=== PATIENT | female | born 1965 | race Caucasian/White ===

== ENCOUNTER 2017-08-08 11:30 | Emergency (ER) | payer BC, OTHER ==
[~2017-08-08] VITALS: Ht 162.6 cm; Wt 68.0 kg
--- OUTSIDE RECORDS SUMMARY | 2017-08-08 11:38 | XMS REPORT | Continuity of Care Document ---
Author Author [facility] Organization [facility] Address Unknown Phone Unavailable Allergies There is no data. Medications There is no data. Problems There is no data. Procedures There is no data. Results There is no data. Encounters ACCT No. Visit Date/Time Discharge Status Pt. Type Provider Facility Loc./Unit Complaint [id number] 09/03/2014 15:39:00 09/03/2014 23:59:59 CLS Outpatient PHILIPPE BARKER [facility] OCC
[2017-08-08] MEDS ORDERED: NS IV 1000 ML 1,000 ML IV ONE (11:51)
[2017-08-08] MEDS ORDERED: RT-ALBUTEROL/IPRATROPIUM 3 ML (DUONEB) VIAL INH ONE (12:00)
[2017-08-08] MEDS ORDERED: KETOROLAC 30 MG/ML VIAL IVP ONE (12:00)
[2017-08-08] MEDS ORDERED: ONDANSETRON 4 MG/2 ML (SDV) Z0FRAN IVP ONE (12:00)
--- NOTE | 2017-08-08 12:16 | ED General ---
General Chief Complaint: Cough/Cold/Flu Symptoms Stated Complaint: N/V/D/FEVER Nursing Triage Note: c/o cough/N-V/diarrhea/fever/chills. Onset Sunday. Nursing Sepsis Screen: Possible Sepsis Risk Source of Information: Patient Exam Limitations: No Limitations History of Present Illness Time Seen by Provider: 11:41 Initial Comments This 51 woman presents to emergency room with illness for the past 5 days including fever, chills, myalgia, vomiting, diarrhea, dry mouth, and mild cough. Temperatures at home have been up to 102.6. She is concerned she is becoming dehydrated. She sometimes wakes up gasping after lying down. She has no significant chronic health problems. Allergies and Home Medications Allergies Coded Allergies: acetaminophen (Verified Allergy, Unknown, 08/08/17) codeine (Verified Allergy, Unknown, 08/08/17) diazepam (Verified Allergy, Unknown, 08/08/17) oxycodone (Verified Allergy, Unknown, 08/08/17) propoxyphene (Verified Allergy, Unknown, 08/08/17) Home Medications Albuterol Sulfate 1 Puff Puff, 1-4 PUFF IH Q4H PRN for SHORTNESS OF BREATH, #1 1 PUFF = 90 MCG Prescribed by: ANTONIO JEWELL on 08/08/17 1312 Ondansetron 4 Mg Tab.rapdis, 4 MG SL Q4H PRN for NAUSEA/VOMITING-1ST LINE, #10 Prescribed by: ANTONIO JEWELL on 08/08/17 1312 Constitutional: see HPI EENTM: see HPI Respiratory: see HPI Cardiovascular: no symptoms reported Gastrointestinal: see HPI Genitourinary: no symptoms reported : No Musculoskeletal: see HPI Skin: no symptoms reported Psychiatric/Neurological: No Symptoms Reported Hematologic/Lymphatic: No Symptoms Reported Past [id number]-[id number] Hx Patient Social History Alcohol Use: Denies Use Recreational Drug Use: No Smoking Status: Former Smoker Former Smoker, Quit: Jul 28, 2017 Recent Foreign Travel: No Contact w/Someone Who Travel: No Recent Infectious Disease Expo: No Surgeries History of Surgeries: Yes (right shoulder, abdominal adhesions) Surgeries: Appendectomy, Hysterectomy, Tonsillectomy Respiratory History of Respiratory Disorde: No Cardiovascular History of Cardiac Disorders: No Neurological History of Neurological Disord: No Reproductive System : No Genitourinary History of Genitourinary Disor: No Gastrointestinal History of Gastrointestinal Di: No Musculoskeletal History of Musculoskeletal Dis: No Endocrine History of Endocrine Disorders: No HEENT History of HEENT Disorders: No Cancer History of Cancer: No Psychosocial History of Psychiatric Problem: No Integumentary History of Skin or Integumenta: No Blood Transfusions History of Blood Disorders: No Physical Exam Vital Signs Vital Sign - Last 12Hours 08/08/17 08/08/17 11:45 14:17 Temp 98.8 Pulse 102 Resp 16 B/P (MAP) 128/82 (97) Pulse Ox 97 O2 Delivery Room Air Capillary Refill : Less Than 3 Seconds General Appearance: No Apparent Distress, WD/WN HEENT: PERRL/EOMI, Normal ENT Inspection, Other (oropharynx somewhat dry) Neck: Normal Inspection Respiratory: No Accessory Muscle Use, No Respiratory Distress, Wheezing (with forced expiration), Other (forced expiration induces wheezing and cough) Cardiovascular: Regular Rate, Rhythm, No Edema, No Murmur Gastrointestinal: Normal Bowel Sounds, Non Tender, Soft Extremity: Normal Inspection, No Pedal Edema Neurologic/Psychiatric: Alert, Oriented x3, No Motor/Sensory Deficits, Normal Mood/Affect, policy analyst II-XII Norm as Tested Skin: Normal Color, Warm/Dry Progress/Results/Core Measures Suspected Sepsis Recent Fever Within 48 Hours: Yes Infection Criteria Present: Suspected New Infection New/Unexplained Altered Menta: No Sepsis Screen: Possible Sepsis Risk Sepsis Diagnosis: SIRS Temperature:98.8 Pulse: 102 Respiratory Rate: Laboratory Tests 08/08/17 12:15: White Blood Count 8.3 Blood Pressure 128 /82 Mean: 97 Laboratory Tests 08/08/17 12:15: Creatinine 0.74, Platelet Count 160, Total Bilirubin 0.4 Results/Orders Lab Results Laboratory Tests Test 08/08/17 12:15 Range/Units White Blood Count 8.3 4.3-11.0 10^3/uL Red Blood Count 4.90 4.35-5.85 10^6/uL Hemoglobin 13.9 11.5-16.0 G/DL Hematocrit 42 35-52 % Mean Corpuscular Volume 85 80-99 FL Mean Corpuscular Hemoglobin 28 25-34 PG Mean Corpuscular Hemoglobin Concent 33 32-36 G/DL Red Cell Distribution Width 12.6 10.0-14.5 % Platelet Count 160 130-400 10^3/uL Mean Platelet Volume 11.3 H 7.4-10.4 FL Neutrophils (%) (Auto) 76 H 42-75 % Lymphocytes (%) (Auto) 14 12-44 % Monocytes (%) (Auto) 10 0-12 % Eosinophils (%) (Auto) 0 0-10 % Basophils (%) (Auto) 0 0-10 % Neutrophils # (Auto) 6.2 1.8-7.8 X 10^3 Lymphocytes # (Auto) 1.2 1.0-4.0 X 10^3 Monocytes # (Auto) 0.8 0.0-1.0 X 10^3 Eosinophils # (Auto) 0.0 0.0-0.3 10^3/uL Basophils # (Auto) 0.0 0.0-0.1 10^3/uL Sodium Level 137 135-145 MMOL/L Potassium Level 4.0 3.6-5.0 MMOL/L Chloride Level 102 98-107 MMOL/L Carbon Dioxide Level 22 21-32 MMOL/L Anion Gap 13 5-14 MMOL/L Blood Urea Nitrogen 6 L 7-18 MG/DL Creatinine 0.74 0.60-1.30 MG/DL Estimat Glomerular Filtration Rate > 60 BUN/Creatinine Ratio 8 Glucose Level 80 70-105 MG/DL Calcium Level 8.8 8.5-10.1 MG/DL Magnesium Level 1.9 1.8-2.4 MG/DL Total Bilirubin 0.4 0.1-1.0 MG/DL Aspartate Amino Transf (AST/SGOT) 21 5-34 U/L Alanine Aminotransferase (ALT/SGPT) 17 0-55 U/L Alkaline Phosphatase 79 40-136 U/L Total Protein 6.9 6.4-8.2 GM/DL Albumin 4.1 3.2-4.5 GM/DL My Orders Orders - ANTONIO LUNA MD Albuterol/Ipra Inhalation Soln (Duoneb I (08/08/17 12:00) Cbc With Automated Diff (08/08/17 11:51) Comprehensive Metabolic Panel (08/08/17 11:51) Magnesium (08/08/17 11:51) Saline Lock/Iv-Start (08/08/17 11:51) Ns Iv 1000 Ml (Sodium Chloride 0.9%) (08/08/17 11:51) Svn Sm Volume Nebulizer Rt-Rfs (08/08/17 11:51) Ondansetron Injection (Zofran Injectio (08/08/17 12:00) Ketorolac Injection (Toradol Injection) (08/08/17 12:00) Medications Given in ED Vital Signs/I&O Capillary Refill : Less Than 3 Seconds Blood Pressure Mean: 97 Progress Note #1: Time: 12:17 Progress Note Patient was seen and examined. She is receiving Zofran, Toradol, and IV fluids. She'll also receive a DuoNeb treatment for her wheezing. We discussed testing for influenza but this will not change her treatment. She is past the Tamiflu treatment window. She declines influenza screening. Progress Note #2: Progress Note Patient had good improvement in symptoms with treatment as outlined above. DuoNeb treatment improved her breathing. She was prescribed an albuterol inhaler and Zofran. Departure Impression Impression: Primary Impression: Nausea and vomiting Qualified Codes: R11.2 - Nausea with vomiting, unspecified Additional Impression: Acute bronchitis Qualified Codes: J20.9 - Acute bronchitis, unspecified Disposition: 01 HOME, SELF-CARE Condition: Improved Departure-Patient Inst. Decision time for Depature: 13:09 Referrals: KARRIE VANEGAS MD (PCP/Family) Primary Care Physician Patient Instructions: Acute Bronchitis, Adult (DC) Add. Discharge Instructions: Drink plenty of clear liquids. Gradually advance your diet with small quantities of bland food as tolerated. You may take ibuprofen up to 600 mg every 6 hours as needed for body aches and fever. Add Tylenol (acetaminophen) up to 1000 mg every 6 hours as needed for additional relief. Use the Zofran ( ondansetron) as prescribed for nausea and vomiting. Use your inhaler as directed up to 4 puffs and a four-hour period of time for shortness of air, uncontrolled cough and wheezing. Return to the ER or contact her doctor if not improving over the next few days or if symptoms worsen. All discharge instructions reviewed with patient and/or family. Voiced understanding. Scripts Albuterol Sulfate (PROAIR HFA) 1 Puff Puff 1-4 PUFF IH Q4H Y for SHORTNESS OF BREATH, #1 PUFF 1 PUFF = 90 MCG Prov: ANTONIO LUNA MD 08/08/17 Ondansetron (Zofran Odt) 4 Mg Tab.rapdis 4 MG SL Q4H Y for NAUSEA/VOMITING-1ST LINE, #10 TAB Prov: ANTONIO LUNA MD 08/08/17 ANTONIO LUNA MD Aug 08, 2017 12:16
[2017-08-08 12:36] LABS: BASOPHILS % (AUTO) 0 % (0-10); EOSINOPHILS % (AUTO) 0 % (0-10); HEMATOCRIT 42 % (35-52); HEMOGLOBIN 13.9 G/DL (11.5-16.0); LYMPHOCYTES # (AUTO) 1.2 X 10^3 (1.0-4.0); LYMPHOCYTES % (AUTO) 14 % (12-44); MEAN CORPUSCULAR HEMOGLOBIN 28 PG (25-34); MEAN CORPUSCULAR HGB CONC 33 G/DL (32-36); MEAN CORPUSCULAR VOLUME 85 FL (80-99); MEAN PLATELET VOLUME 11.3 FL (7.4-10.4); MONOCYTES # (AUTO) 0.8 X 10^3 (0.0-1.0); MONOCYTES % (AUTO) 10 % (0-12); NEUTROPHILS # (AUTO) 6.2 X 10^3 (1.8-7.8); NEUTROPHILS % (AUTO) 76 % (42-75); PLATELET COUNT 160 10^3/uL (130-400); RED CELL DISTRIBUTION WIDTH 12.6 % (10.0-14.5); WHITE BLOOD COUNT 8.3 10^3/uL (4.3-11.0)
[2017-08-08 12:54] LABS: ALANINE AMINOTRANSFERASE 17 U/L (0-55); ALBUMIN 4.1 GM/DL (3.2-4.5); ALKALINE PHOSPHATASE 79 U/L (40-136); BILIRUBIN,TOTAL 0.4 MG/DL (0.1-1.0); BUN/CREATININE RATIO 8; CALCIUM 8.8 MG/DL (8.5-10.1); CARBON DIOXIDE 22 MMOL/L (21-32); CHLORIDE 102 MMOL/L (98-107); CREATININE SERUM 0.74 MG/DL (0.60-1.30); GFR ESTIMATED > 60; GLUCOSE 80 MG/DL (70-105); MAGNESIUM 1.9 MG/DL (1.8-2.4); SODIUM 137 MMOL/L (135-145); TOTAL PROTEIN 6.9 GM/DL (6.4-8.2)
[2017-08-08] MEDS ORDERED: ONDA4TAB8 SL (13:12)
[2017-08-08] MEDS ORDERED: RT-ALBUINH IH (13:12)
[2017-08-08 14:17] VITALS: BP 124/80
== END 2017-08-08 14:17 | disposition home or self-care (01) ==
LOC: EDUNIT# 11:30 → ER 11:34
DX: J20.9 Acute bronchitis, unspecified (principal); R11.2 Nausea with vomiting, unspecified; Z90.710 Acquired absence of both cervix and uterus; Z90.49 Acquired absence of other specified parts of digestive tract; Z87.891 Personal history of nicotine dependence
CPT/HCPCS: 36415; 80053; 83735; 85025; 94640

== ENCOUNTER 2021-11-07 12:20 | Observation (INO) | payer BC ==
[~2021-11-07] VITALS: Ht 162.5 cm; Wt 68.0 kg
[~2021-11-07 12:20] MED LIST: ONDA4TAB8 SL; RT-ALBUINH IH
--- NOTE | 2021-11-07 12:39 | ED Neurological Problem ---
General Stated Complaint: AMS Source: EMS Exam Limitations: clinical condition History of Present Illness Date Seen by Provider: Nov 07, 2021 Time Seen by Provider: 12:28 Initial Comments Patient is a 55-year-old female brought to the emergency department by EMS chief complaint of altered mental status. Patient reportedly was at work talking to friends about some dental work she had done recently. This progressed into a conversation about a friend who recently from Covid. Apparently the patient became hysterical, crying started acting confused. When EMS arrived the patient was unable to say anything other than her name. She did follow commands. Vital signs were stable. On arrival the patient is crying and not really talking or answering questions. She seems to be understanding what I am saying, nodding appropriately. She will squeeze my hands when asked but when I tried to proceed with neurologic evaluation she could not really follow commands/directions. At this point stroke alert is called and the patient will be sent to CT. In looking at the patient's medications in her purse she is currently on some Zofran, hydrocodone, antibiotics. I did ask her if she took any extra hydrocodone today she nodded no. We asked her if there was anyone we could call and she said no. As I was leaving the room the patient was speaking rather clearly to the nurse saying she was caught up in electronic monitoring devices as they were getting her undressed to go to scan. Per patient's daughter she went to the dentist on Sunday of last week. Started on nausea medicine, amoxicillin, pain medications and ibuprofen. 1438 Nurse was able to track down a co-worker who states that last known well time was 0945. Timing/Duration: 1/2 hour Associated Symptoms: confusion, other (crying/panic) Allergies and Home Medications Allergies Coded Allergies: acetaminophen (Verified Allergy, Unknown, 11/07/21) codeine (Verified Allergy, Unknown, 11/07/21) diazepam (Verified Allergy, Unknown, 11/07/21) oxycodone (Verified Allergy, Unknown, 11/07/21) propoxyphene (Verified Allergy, Unknown, 11/07/21) Patient Home Medication List Home Medication List Reviewed: Yes Albuterol Sulfate (Proair Hfa) 1 Puff Puff, 1-4 PUFF IH Q4H PRN for SHORTNESS OF BREATH Prescribed by: ANTONIO JEWELL on 08/08/171311 Ondansetron (Zofran Odt) 4 Mg Tab.rapdis, 4 MG SL Q4H PRN for NAUSEA/VOMITING- 1ST LINE Prescribed by: ANTONIO JEWELL on 08/08/171311 Review of Systems Review of Systems Constitutional: see HPI unable to obtain due to clinical condition Past Fdgylwl-Zwzkwd-Nwoemj Hx Past Medical History Surgeries: Yes (right shoulder, abdominal adhesions) Appendectomy, Hysterectomy, Tonsillectomy Respiratory: No Cardiac: No Neurological: No Genitourinary: No Gastrointestinal: No Musculoskeletal: No Endocrine: No HEENT: No Cancer: No Psychosocial: No Integumentary: No Blood Disorders: No Physical Exam Vital Signs Vital Signs - First Documented 11/07/21 12:24 Temp 36.8 Pulse 88 Resp 16 B/P (MAP) 108/76 (87) Pulse Ox 97 O2 Delivery Room Air Capillary Refill : Height, Weight, BMI Height: 5'4.00" Weight: 150lbs. oz. 68.217368vh; BMI Method:Estimated General Appearance: WD/WN, moderate distress (crying/upset) HEENT: PERRL/EOMI, other (moist mucous membranes) Neck: normal inspection Respiratory: lungs clear, normal breath sounds, no respiratory distress, no accessory muscle use Cardiovascular: regular rate, rhythm, other (2+ radial pusles bilaterally) Gastrointestinal: normal bowel sounds, soft Extremities: normal range of motion, normal inspection, no pedal edema, normal capillary refill Neurologic/Psychiatric: alert, aphasia, other (depressed affect; nods that she understands but is having a difficult time getting words out; will not "pull" for upper extremity biceps testing, does not seem to understand shoulder shrug) Crainal Nerves: normal hearing, PERRL; No abnormal eye position, No abnormal pupil position, No facial asymmetry Coordination/Gait: other (gait not tested; will not/cannot comply with other cerebellar function testing) Motor/Sensory: no motor deficit Skin: normal color, warm/dry Stroke Onset of Symptoms Date of Onset of Symptoms: Nov 07, 2021 Symptoms onset unknown: Yes (unclear time of onset) NIH Stroke Scale Assessment Select: Post CT Level of Consciousness: 0=Alert (0), LOC Commands: 0=Performs both tasks (0), Gaze: Normal (0), Visual Valdovinos: 0=No visual loss (0), Facial Movement (Facial Paresis): 0=Normal symmetrical mnt (0), Motor Function-Arms Right: 0=No drift (0), Motor Function-Arms Left: 0=No drift (0), Motor Function-Legs Right: 0=No drift (0), Motor Function-Legs Left: 0=No drift (0), Limb Ataxia: 0=Absent (0), Sensory: 0=Normal:no loss (0), Best Language: 1=Mild to moderat aphasia (1), Dysarthria: 0=Normal (0), Extinction & Inattention: 0=No abnormality (0), Total: 1 Stroke Thrombolytic Exclusion Age 18 or Over: Yes Acute intenal hemorrhage: No History of CVA: No Uncontrolled Coagulation Defec: No Intracranial Hemorrhage: No Severe Hypertension: No GI or Bleed: No Subarachnoid Hemorrhage: No Intracranial Neoplasm/Aneurysm: No Oral Anticoagulants: No Surgery or Trauma: No Puncture of Non-Compressible V: No Recent CPR: No Diabetic Hemorrhagic Retinopat: No Organ Biopsy: No Recent Obstetric Delivery: No Glucose: No Significant Hepatic Dysfunctio: No NIH Stoke Scale >22: No Bacterial Endocarditis: No Pericarditis: No Improving Symptoms: Yes Platelets: No TPA Contraindication: No IV - TPa Received IV - TPa Procedure Performed?: No Progress/Results/Core Measures Results/Orders Lab Results Laboratory Tests Test 11/07/21 12:40 11/07/21 12:41 Range/Units White Blood Count 7.4 4.3-11.0 10^3/uL Red Blood Count 5.09 3.80-5.11 10^6/uL Hemoglobin 14.2 11.5-16.0 g/dL Hematocrit 43 35-52 % Mean Corpuscular Volume 85 80-99 fL Mean Corpuscular Hemoglobin 28 25-34 pg Mean Corpuscular Hemoglobin Concent 33 32-36 g/dL Red Cell Distribution Width 12.1 10.0-14.5 % Platelet Count 234 130-400 10^3/uL Mean Platelet Volume 10.8 9.0-12.2 fL Immature Granulocyte % (Auto) 1 % Neutrophils (%) (Auto) 71 42-75 % Lymphocytes (%) (Auto) 23 12-44 % Monocytes (%) (Auto) 5 0-12 % Eosinophils (%) (Auto) 1 0-10 % Basophils (%) (Auto) 0 0-10 % Neutrophils # (Auto) 5.3 1.8-7.8 10^3/uL Lymphocytes # (Auto) 1.7 1.0-4.0 10^3/uL Monocytes # (Auto) 0.4 0.0-1.0 10^3/uL Eosinophils # (Auto) 0.0 0.0-0.3 10^3/uL Basophils # (Auto) 0.0 0.0-0.1 10^3/uL Immature Granulocyte # (Auto) 0.0 0.0-0.1 10^3/uL Prothrombin Time 12.6 12.2-14.7 SEC INR Comment 0.9 0.8-1.4 Activated Partial Thromboplast Time 30 24-35 SEC D-Dimer 0.37 0.00-0.49 UG/ML Sodium Level 138 135-145 MMOL/L Potassium Level 3.6 3.6-5.0 MMOL/L Chloride Level 105 98-107 MMOL/L Carbon Dioxide Level 19 L 21-32 MMOL/L Anion Gap 14 5-14 MMOL/L Blood Urea Nitrogen 8 7-18 MG/DL Creatinine 0.80 0.60-1.30 MG/DL Estimat Glomerular Filtration Rate 86 BUN/Creatinine Ratio 10 Glucose Level 99 70-105 MG/DL Calcium Level 9.0 8.5-10.1 MG/DL Corrected Calcium 9.2 8.5-10.1 MG/DL Total Bilirubin 0.5 0.1-1.0 MG/DL Aspartate Amino Transf (AST/SGOT) 12 5-34 U/L Alanine Aminotransferase (ALT/SGPT) 14 0-55 U/L Alkaline Phosphatase 75 40-136 U/L Troponin I < 0.028 <0.028 NG/ML Total Protein 6.3 L 6.4-8.2 GM/DL Albumin 3.8 3.2-4.5 GM/DL Salicylates Level < 5.0 L 5.0-20.0 MG/DL Acetaminophen Level < 10 L 10-30 UG/ML Serum Alcohol < 10 <10 MG/DL Glucometer 99 70-110 MG/DL My Orders Orders - ROBERTO CARLOS DOTY MD Cbc With Automated Diff (11/07/21 12:34) Protime With Inr (11/07/21 12:34) Partial Thromboplastin Time (11/07/21 12:34) Comprehensive Metabolic Panel (11/07/21 12:34) Fibrin Degradation Products (11/07/21 12:34) Troponin I [place] (11/07/21 12:34) Ua Culture If Indicated (11/07/21 12:34) Chest 1 View, Ap/Pa Only (11/07/21 12:34) Ekg Tracing (11/07/21 12:34) Nothing By Mouth (11/07/21 Lunch) Accucheck Stat ONCE (11/07/21 12:34) Ed Iv/Invasive Line Start (11/07/21 12:34) Ed Iv/Invasive Line Start (11/07/21 12:34) Vital Signs Stroke Patient Q15M (11/07/21 12:34) Ct Head Wo-R/O Stroke (11/07/21 12:34) O2 (11/07/21 12:34) Intake & Output 06,14,22 (11/07/21 12:34) Monitor-Rhythm Ecg Trace Only (11/07/21 12:34) Dysphagia Screening Tool Q10MX1 (11/07/21 12:34) Post Thrombolytic Adminstratio (11/07/21 12:34) Lipid Panel (11/08/21 06:00) Ondansetron Injection (Zofran Injectio (11/07/21 13:45) Ct Angio Head/Neck (11/07/21 13:38) Accucheck Stat ONCE (11/07/21 13:54) Ed Iv/Invasive Line Start (11/07/21 13:54) Ed Iv/Invasive Line Start (11/07/21 13:54) Vital Signs Stroke Patient Q15M (11/07/21 13:54) O2 (11/07/21 13:54) Dysphagia Screening Tool Q10MX1 (11/07/21 13:54) Post Thrombolytic Adminstratio (11/07/21 13:54) Iohexol Injection (Omnipaque 350 Mg/Ml 1 (11/07/21 14:00) Received Contrast (Hold Metformin- Contr (11/07/21 14:00) Sodium Chloride Flush (Catheter Flush Sy (11/07/21 14:00) Ns (Ivpb) (Sodium Chloride 0.9% Ivpb Bag (11/07/21 14:00) Ketorolac Injection (Toradol Injection) (11/07/21 14:00) Drug Screen Stat (Urine) (11/07/21 15:00) Salicylate (11/07/21 15:00) Acetaminophen (11/07/21 15:00) Alcohol (11/07/21 15:00) Ed Admission (Communication) (11/07/21 15:07) Medications Given in ED Vital Signs/I&O 11/07/21 12:24 Temp 36.8 Pulse 88 Resp 16 B/P (MAP) 108/76 (87) Pulse Ox 97 O2 Delivery Room Air Admisison Planning May Need Admission (Planning): 14:54 Progress Progress Note #1: Time: 14:35 Progress Note Patient is steadily improving. She is now talking in complete sentences however, still having occasional word finding difficulties. Her finger to nose was forced and deliberate but accurate. strength is normal, she follows commands up and to when I ask her to open her mouth wide and stick out her tongue - she looks at me like she doesnt understand. NIG would be zero basically (slightly limited due to patient compliance). VS are completely normal - BP is systolic 110 or so. Labs completely normal. CT head without contrast neg; CT angios neg. She is still nauseated she states, although no vomiting. Progress Note #2: Time: 15:10 Progress Note Reevaluated patient, when I walked into the room she was sitting up in the bed s hivering holding her head in her stomach complaining of nausea and frontal headache. She seems "confused" again. A little bit more "word salad". She is trying to tell me she got sick last Sunday she states "I got Sunday on last Sunday". Case was discussed with stroke neurology Dr. Andrews, who felt that appropriate work-up had been completed up until this point. He did recommend possibly a B12 level. He also recommended adding toxicology. No further work- up from a stroke standpoint was indicated. Case was discussed with Dr. Crump on for hospitalist service. Will admit observation to monitor neurologic/mental health. If no improvement, consider Natalya psych eval. Initial ECG Impression Date: Nov 07, 2021 Initial ECG Impression Time: 12:48 Initial ECG Rate: 77 Initial ECG Rhythm: Normal Sinus Initial ECG Impression: Normal Comment CT 154 QRS 104 QTc 452 No ectopy, no ST segment depression or elevation noted. Normal axis. Diagnostic Imaging Diagonstic Imaging: CT Plain Films/CT/US/NM/MRI: head Comments PT STATUS: REG ER : 1965 PHYSICIAN: ROBERTO CARLOS DOTY MD ADMIT DATE: 11/07/21/ER Draft Date of Exam:11/07/21 CT HEAD WO-R/O STROKE PROCEDURE: CT head wo r/o stroke. TECHNIQUE: Multiple contiguous axial images were obtained through the brain without the use of intravenous contrast. Auto Exposure Controls were utilized during the CT exam to meet ALARA standards for radiation dose reduction. INDICATION: Difficulty speaking, neurodeficits. COMPARISON: No prior studies are available for comparison. FINDINGS: Ventricles and sulci are within normal limits. No sulcal effacement or midline shift is identified. No acute intra-axial or extra-axial hemorrhage is seen. There is a small low density in the left thalamus consistent with age-indeterminate lacunar infarct. No other abnormalities are seen. Cisterns are patent. Visualized paranasal sinuses are clear. IMPRESSION: 1. No acute intracranial hemorrhage is detected. 2. Age-indeterminate left thalamic lacunar infarct. Dictated on workstation # [id number] Dict: 11/07/21 1310 Trans: 11/07/21 1320 [id number] Interpreted by: MICHAEL HERMOSILLO MD Electronically signed by: Diagonstic Imaging: Xray Plain Films/CT/US/NM/MRI: chest Comments [facility], [place] NAME: SORAIDA GARCIA [facility] REC#: [id number] PT STATUS: REG ER : 1965 PHYSICIAN: ROBERTO CARLOS DOTY MD ADMIT DATE: 11/07/21/ER Draft Date of Exam:11/07/21 CHEST 1 VIEW, AP/PA ONLY INDICATION: Stroke. COMPARISON: None available. TECHNIQUE: Single radiograph of the chest dated 11/07/2021. FINDINGS: The cardiac silhouette is within normal limits in size. No significant pulmonary vascular congestion. Minimal bibasilar interstitial opacities are present. The lungs are otherwise clear. No pleural effusion. No pneumothorax. No acute osseous abnormality. IMPRESSION: Minimal right greater than left bibasilar atelectasis and/or pneumonitis. Dictated on workstation # [id number] Dict: 11/07/21 1305 Trans: 11/07/21 1313 [id number] Interpreted by: ROCIO SINCLAIR MD Electronically signed by: Diagonstic Imaging: CT Comments [facility], [place] NAME: SORAIDA GARCIA [facility] REC#: [id number] PT STATUS: REG ER : 1965 PHYSICIAN: ROBERTO CARLOS DOTY MD ADMIT DATE: 11/07/21/ER Draft Date of Exam:11/07/21 CT ANGIO HEAD/NECK PROCEDURE: CT angiography of the head and CT angiography of the neck with and without contrast. TECHNIQUE: Contiguous noncontrast images were obtained from the skull base through the vertex. After intravenous contrast administration, helical CT angiography of the neck was performed. Source data was reformatted into 3D MIP projections. Delayed post contrast acquisition was also obtained. Auto Exposure Controls were utilized during the CT exam to meet ALARA standards for radiation dose reduction. INDICATION: Expressive aphasia CTA HEAD: Anterior, middle and posterior cerebral arteries are well-opacified without evidence of stenosis or occlusion. There is no aneurysm or vascular malformation. No abnormal contrast enhancement is seen. IMPRESSION: No CTA evidence of great vessel abnormality in the head. CTA NECK: There is a normal three-vessel branching pattern arising from the aortic arch. No stenosis or occlusion is identified. There is reversal of cervical lordosis with mild diffuse cervical spondylosis. No acute fracture is identified. There is no evidence of contrast extravasation or cervical mass. Vertebral arteries are codominant without stenosis or occlusion. Vertebral arteries are mildly tortuous but otherwise unremarkable. IMPRESSION: No CTA evidence of great vessel abnormality in the neck. Dictated on workstation # [id number] Dict: 11/07/21 1420 Trans: 11/07/21 1428 [facility] [id number] Interpreted by: TONY MCADAMS MD Electronically signed by: DAVEY/APPLEOPE: ECG, Tpa Considered Departure Communication (Admissions) Time/Spoke to Admitting Phy: 15:[address] Crump - will admit Observation Impression Primary Impression: Altered mental status Qualified Codes: R41.82 - Altered mental status, unspecified Additional Impression: Headache Qualified Codes: R51.9 - Headache, unspecified Disposition: ADMITTED INPATIENT Condition: Stable Admissions Decision to Admit Reason: Admit from ER (General) Decision to Admit/Date: Nov 07, 2021 Time/Decision to Admit Time: 14:49 Departure-Patient Inst. Referrals: KARRIE VANEGAS MD (PCP/Family) Primary Care Physician ROBERTO CARLOS DOTY MD Nov 07, 2021 12:39
[2021-11-07 12:49] LABS: BASOPHILS % (AUTO) 0 % (0-10); EOSINOPHILS % (AUTO) 1 % (0-10); HEMATOCRIT 43 % (35-52); HEMOGLOBIN 14.2 g/dL (11.5-16.0); LYMPHOCYTES # (AUTO) 1.7 10^3/uL (1.0-4.0); LYMPHOCYTES % (AUTO) 23 % (12-44); MEAN CORPUSCULAR HEMOGLOBIN 28 pg (25-34); MEAN CORPUSCULAR HGB CONC 33 g/dL (32-36); MEAN CORPUSCULAR VOLUME 85 fL (80-99); MEAN PLATELET VOLUME 10.8 fL (9.0-12.2); MONOCYTES # (AUTO) 0.4 10^3/uL (0.0-1.0); MONOCYTES % (AUTO) 5 % (0-12); NEUTROPHILS # (AUTO) 5.3 10^3/uL (1.8-7.8); NEUTROPHILS % (AUTO) 71 % (42-75); PLATELET COUNT 234 10^3/uL (130-400); WHITE BLOOD COUNT 7.4 10^3/uL (4.3-11.0)
[2021-11-07 13:08] LABS: ALBUMIN 3.8 GM/DL (3.2-4.5); CHLORIDE 105 MMOL/L (98-107); POTASSIUM 3.6 MMOL/L (3.6-5.0); SODIUM 138 MMOL/L (135-145)
[2021-11-07 13:10] LABS: GLUCOSE 99 MG/DL (70-105); TOTAL PROTEIN 6.3 GM/DL (6.4-8.2)
[2021-11-07 13:11] LABS: CARBON DIOXIDE 19 MMOL/L (21-32)
[2021-11-07 13:12] LABS: BILIRUBIN,TOTAL 0.5 MG/DL (0.1-1.0)
[2021-11-07 13:13] LABS: FIBRIN DEGRADATION PRODUCTS 0.37 UG/ML (0.00-0.49); INR 0.9 (0.8-1.4); PROTHROMBIN TIME PATIENT 12.6 SEC (12.2-14.7)
[2021-11-07 13:14] LABS: ALKALINE PHOSPHATASE 75 U/L (40-136); GFR ESTIMATED 86
--- NOTE | 2021-11-07 13:14 | Diagnostic Imaging Report ---
INDICATION: Stroke. COMPARISON: None available. TECHNIQUE: Single radiograph of the chest dated 11/07/2021. FINDINGS: The cardiac silhouette is within normal limits in size. No significant pulmonary vascular congestion. Minimal bibasilar interstitial opacities are present. The lungs are otherwise clear. No pleural effusion. No pneumothorax. No acute osseous abnormality. IMPRESSION: Minimal right greater than left bibasilar atelectasis and/or pneumonitis. Dictated by: Dictated on workstation # [id number]
[2021-11-07 13:15] LABS: BUN/CREATININE RATIO 10
[2021-11-07 13:17] LABS: ALANINE AMINOTRANSFERASE 14 U/L (0-55)
--- NOTE | 2021-11-07 13:20 | Diagnostic Imaging Report ---
PROCEDURE: CT head wo r/o stroke. TECHNIQUE: Multiple contiguous axial images were obtained through the brain without the use of intravenous contrast. Auto Exposure Controls were utilized during the CT exam to meet ALARA standards for radiation dose reduction. INDICATION: Difficulty speaking, neurodeficits. COMPARISON: No prior studies are available for comparison. FINDINGS: Ventricles and sulci are within normal limits. No sulcal effacement or midline shift is identified. No acute intra-axial or extra-axial hemorrhage is seen. There is a small low density in the left thalamus consistent with age-indeterminate lacunar infarct. No other abnormalities are seen. Cisterns are patent. Visualized paranasal sinuses are clear. IMPRESSION: 1. No acute intracranial hemorrhage is detected. 2. Age-indeterminate left thalamic lacunar infarct. Dictated by: Dictated on workstation # [id number]
[2021-11-07] MEDS ORDERED: ONDANSETRON 4 MG/2 ML (SDV) Z0FRAN IVP ONE (13:45)
[2021-11-07] MEDS ORDERED: CATHETER FLUSH 10 ML SYR IV PRN (14:00)
[2021-11-07] MEDS ORDERED: IOHEXOL 350 MG/ML 100 ML (OMNIPAQUE 350) VIAL IV ONE (14:00)
[2021-11-07] MEDS ORDERED: NS 100 ML (IVPB) BAG IV ONE (14:00)
[2021-11-07] MEDS ORDERED: KETOROLAC 30 MG/ML VIAL IVP ONE (14:00)
[2021-11-07] MEDS ORDERED: HOLD METFORMIN - RECEIVED CONTRAST 20 ML VIAL IV SCH (14:00)
--- NOTE | 2021-11-07 14:28 | Diagnostic Imaging Report ---
PROCEDURE: CT angiography of the head and CT angiography of the neck with and without contrast. TECHNIQUE: Contiguous noncontrast images were obtained from the skull base through the vertex. After intravenous contrast administration, helical CT angiography of the neck was performed. Source data was reformatted into 3D MIP projections. Delayed post contrast acquisition was also obtained. Auto Exposure Controls were utilized during the CT exam to meet ALARA standards for radiation dose reduction. INDICATION: Expressive aphasia CTA HEAD: Anterior, middle and posterior cerebral arteries are well-opacified without evidence of stenosis or occlusion. There is no aneurysm or vascular malformation. No abnormal contrast enhancement is seen. IMPRESSION: No CTA evidence of great vessel abnormality in the head. CTA NECK: There is a normal three-vessel branching pattern arising from the aortic arch. No stenosis or occlusion is identified. There is reversal of cervical lordosis with mild diffuse cervical spondylosis. No acute fracture is identified. There is no evidence of contrast extravasation or cervical mass. Vertebral arteries are codominant without stenosis or occlusion. Vertebral arteries are mildly tortuous but otherwise unremarkable. IMPRESSION: No CTA evidence of great vessel abnormality in the neck. Dictated by: Dictated on workstation # [id number]
[2021-11-07] MEDS ORDERED: LORazepam INJ 2 MG/ML (ATIVAN) VIAL IVP ONE (15:30)
[2021-11-07 16:24] LABS: SALICYLATE < 5.0 MG/DL (5.0-20.0)
[2021-11-07 16:27] LABS: ACETAMINOPHEN < 10 UG/ML (10-30)
[2021-11-07 17:27] VITALS: BP 106/64
[2021-11-07] MEDS ORDERED: ONDANSETRON 4 MG/2 ML (SDV) Z0FRAN IV PRN (17:45)
[2021-11-07] MEDS ORDERED: BENZONATATE 100 MG (TESSALON) CAPSULE PO PRN (17:45)
[2021-11-07] MEDS ORDERED: polyethylene glycoL POWDER 17 GM (MIRALAX) PACK PO PRN (17:45)
[2021-11-07] MEDS ORDERED: ANTACID SUSP 30 ML UDC (MYLANTA) PO PRN (17:45)
[2021-11-07] MEDS ORDERED: MILK OF MAGNESIA 400 MG/5 ML 30 ML UDC PO PRN (17:45)
[2021-11-07 19:53] VITALS: BP 97/66
[2021-11-08] VITALS: BP 112/64
[2021-11-08 03:57] VITALS: BP 101/63
[2021-11-08 05:46] LABS: HEMATOCRIT 41 % (35-52); HEMOGLOBIN 13.1 g/dL (11.5-16.0); MEAN CORPUSCULAR HEMOGLOBIN 27 pg (25-34); MEAN CORPUSCULAR HGB CONC 32 g/dL (32-36); MEAN CORPUSCULAR VOLUME 85 fL (80-99); MEAN PLATELET VOLUME 10.6 fL (9.0-12.2); PLATELET COUNT 230 10^3/uL (130-400); WHITE BLOOD COUNT 6.1 10^3/uL (4.3-11.0)
[2021-11-08 05:55] LABS: INR 0.9 (0.8-1.4); PROTHROMBIN TIME PATIENT 12.8 SEC (12.2-14.7)
[2021-11-08 05:57] LABS: POTASSIUM 3.9 MMOL/L (3.6-5.0)
[2021-11-08 05:59] LABS: CALCIUM 8.6 MG/DL (8.5-10.1)
[2021-11-08 06:03] LABS: CREATININE SERUM 0.82 MG/DL (0.60-1.30)
[2021-11-08 08:00] VITALS: BP 95/62
--- NOTE | 2021-11-08 09:11 | Physical Therapy Evaluation ---
PT Evaluation-General Medical Diagnosis Admission Date Nov 07, 2021 at 15:07 Medical Diagnosis: AMS Onset Date: Nov 07, 2021 Therapy Diagnosis Therapy Diagnosis: debility/weakness Height/Weight Height (Feet): 5 Height (Inches): 4.00 Weight (Pounds): 150 Precautions Precautions/Isolations: Fall Prevention, Standard Precautions Referral Physician: Alisia Reason for Referral: Evaluation/Treatment Medical History Current History EMS secondary to AMS at work Reviewed History: Yes Social History Home: Single Level Prior Prior Level of Function SCALE: Activities may be completed with or without assistive devices. 8-Yhbfsgalst-czwapqe completes the activity by him/herself with no assistance from a helper. 5-Set-up or Clean-up Assistance-helper sets up or cleans up; patient completes activity. Dixon assists only prior to or following the activity. 4-Supervision or Touching Assistance-helper provides verbal cues and/or touching/steadying and/or contact guard assistance as patient completes activity. Assistance may be provided throughout the activity or intermittently. 3-Partial/Moderate Assistance-helper does LESS THAN HALF the effort. Dixon lifts, holds or supports trunk or limbs, but provides less than half the effort. 2-Substantial/Maximal Assistance-helper does MORE THAN HALF the effort. Dixon lifts or holds trunk or limbs and provides more than half the effort. 1-Zlhkmbqnq-rzrhka does ALL the effort. Patient does none of the effort to complete the activity. Or, the assistance of 2 or more helpers is required for the patient to complete the activity. If activity was not attempted, code reason: 7-Patient Refused. 9-Not Applicable-not attempted and the patient did not perform the activity before the current illness, exacerbation or injury. 10-Not Attempted due to Environmental Limitations-(lack of equipment, weather restraints, etc.). 88-Not Attempted due to Medical Conditions or Safety Concerns. Bed Mobility: 6 Transfers (B,C,W/C): 6 Gait: 6 Stairs: 6 Indoor Mobility (Ambulation): Independent Stairs: Independent Prior Devices Use: None PT Evaluation-Current Subjective Patient c/o right frontal TOMAS and has a new onset cough. Mask in place on patient during session. Pain Numeric Pain Scale: 10-Worst Possible Pain Location: Right Location Body Site: Head Pain Description: Pressure, Sharp Objective Patient Orientation: Normal For Age ROM/Strength ROM Lower Extremities bilateral LE WFL Strength Lower Extremities 3+/5 grossly bilateral LE Integumentary/Posture Bowel Incontinence: No Bladder Incontinence: No Posture WFL Neuromuscular (Tone, Coordination, Reflexes) grossly intact Sensory Vision: Wears Glasses Hearing: Functional Transfers Roll Left to Right (QC): 6 Sit to Lying (QC): 6 Lying to Sitting/Side of Bed(Q: 6 Sit to Stand (QC): 3 Gait Distance: 5 side steps Gait Assistive Device: None Balance Sitting Static: Normal Sitting Dynamic: Normal Standing Static: Fair Standing Dynamic: Fair Treatment orthostatic hypotension test performed (supine 97/66; sit 84/61; stand 86/60) physician notified Assessment/Needs 55 y.o. female will be seen short term by skilled PT to address functional strength and mobility to improve current LOF to safely return to independent PLOF. Rehab Potential: Good PT Jail Goals Jail Goals PT Level Vial Inside Grinder Goals Time Frame: Nov 12, 2021 Roll Left & Right (QC): 6 Sit to Lying (QC): 6 Lying-Sitting on Side/Bed(QC): 6 Sit to Stand (QC): 6 Chair/Xjz-ab-Kpymu Xfer(QC): 6 Toilet Transfer (QC): 6 Walk 10 feet (QC): 6 Walk 50ft with 2 Turns (QC): 6 Walk 150 ft (QC): 6 PT Plan Problem List Problem List: Activity Tolerance, Functional Strength, Safety, Balance, Gait, Transfer Treatment/Plan Treatment Plan: Continue Plan of Care Treatment Plan: Bed Mobility, Education, Functional Activity Vianney, Functional Strength, Gait, Safety, Therapeutic Exercise, Transfers Treatment Duration: Nov 12, 2021 Frequency: 5 times per week Estimated Hrs Per Day: .25 hour per day Patient and/or Family Agrees t: Yes Time/GCodes Time In: 845 Time Out: 856 Total Billed Treatment Time: 11 Total Billed Treatment 1 visit EVMod 11 min SORAIDA HINES PT Nov 08, 2021 09:11
[2021-11-08] MEDS ORDERED: diphenhydrAMINE 50 MG/ML INJ (BENADRYL) IV PRN (11:15)
[2021-11-08] MEDS ORDERED: EPINEPHrine INJECTION 1 MG/ML AMP IM PRN (11:15)
--- NOTE | 2021-11-08 11:15 | History & Physical-Hospitalist ---
History of Present Illness HPI/Chief Complaint Patient is a 55-year-old female with no known past medical history who presented to the emergency department due to confusion. She recently had a dental procedure done on November 03 and has not really felt well since that time. She complains of cough nausea and sweating. She thought it was due to the procedure and that she does not do well with pain medicines. Yesterday at work she was very confused and unable to find words. She also became very upset when talking about a family member who recently . Her coworkers brought her into the emergency room for evaluation. She was activated as code stroke and CT head was negative for acute findings. The ER physician discussed this with [facility] stroke neurology who recommended observation given no focal deficits with negative imaging. This morning. She is mentating much better though still not quite back to normal per her daughter who is at bedside. She now complains of a cough and loss of taste. She is unvaccinated for Covid. She is unsure of any exposures. Source: patient Date Seen 11/08/21 Time Seen by a Provider: 11:10 Attending Physician Basil Crump MD PCP No,Local Physician Referring Physician Date of Admission Nov 07, 2021 at 15:07 Home Medications & Allergies Home Medications Reviewed patient Home Medication Reconciliation performed by pharmacy medication reconciliations radio frequency technician and/or nursing. Patients Allergies have been reviewed. Allergies Allergies Coded Allergies acetaminophen (Verified Allergy, Unknown, 11/07/21) codeine (Verified Allergy, Unknown, 11/07/21) diazepam (Verified Allergy, Unknown, 11/07/21) oxycodone (Verified Allergy, Unknown, 11/07/21) propoxyphene (Verified Allergy, Unknown, 11/07/21) Past Mobaaju-Vusofj-Oxueid Hx Patient Social History Employed/Student: employed Tobacco Use?: No Tobacco type used: Cigarettes Smoking Status: Former Smoker Use of E-Cig and/or Vaping dev: No Substance use?: No Alcohol Use?: Yes Alcohol Frequency: Once in a while Pt feels they are or have been: Unable to obtain Immunizations Up To Date Tetanus Booster (TDap): Unknown Current Status status: No status: No Advance Directives: No Communicates: Verbally Primary Language: Guinean Preferred Spoken Language: Guinean Is interpretation needed?: No Past Medical History Surgeries: Appendectomy, Hysterectomy, Tonsillectomy Blood Disorders: No Family Medical History Reviewed Nursing Family Hx No Pertinent Family Hx Review of Systems Constitutional: chills, diaphoresis, fever (subjective) Respiratory: cough; No phlegm, No short of breath Cardiovascular: No chest pain, No edema Gastrointestinal: nausea, vomiting Genitourinary: no symptoms reported Musculoskeletal: no symptoms reported Skin: no symptoms reported Psychiatric/Neurological: See HPI Physical Exam Physical Exam Vital Signs Vital Signs - First Documented 11/07/21 12:24 Temp 36.8 Pulse 88 Resp 16 B/P (MAP) 108/76 (87) Pulse Ox 97 O2 Delivery Room Air Capillary Refill : Less Than 3 Seconds Height, Weight, BMI Height: 5'4.00" Weight: 150lbs. oz. 68.264560sn; 25.75 BMI Method:Estimated General Appearance: No Apparent Distress, WD/WN HEENT: PERRL/EOMI, Moist Mucous Membranes; No Scleral Icterus (L), No Scleral Icterus (R) Neck: Normal Inspection, Supple Respiratory: Lungs Clear, No Accessory Muscle Use, No Respiratory Distress Cardiovascular: Regular Rate, Rhythm, No Edema, No Murmur, Normal Peripheral Pulses Gastrointestinal: Normal Bowel Sounds, Non Tender, Soft Extremity: Normal Capillary Refill, No Calf Tenderness, No Pedal Edema Neurologic/Psychiatric: Alert, Oriented x3, Normal Mood/Affect; No Aphasia, No Facial Droop, No Motor Weakness, No Sensory Deficit Skin: Normal Color, Warm/Dry Results Results/Procedures Labs Laboratory Tests 11/07/21 12:40 11/08/21 05:28 Patient resulted labs reviewed. Imaging: Reviewed Imaging Report Imaging [facility], [place] NAME: SORAIDA GARCIA [facility] REC#: [id number] PT STATUS: ADM Phil : 1965 PHYSICIAN: ROBERTO CARLOS DOTY MD ADMIT DATE: 11/07/21 Signed Date of Exam:11/07/21 CHEST 1 VIEW, AP/PA ONLY INDICATION: Stroke. COMPARISON: None available. TECHNIQUE: Single radiograph of the chest dated 11/07/2021. FINDINGS: The cardiac silhouette is within normal limits in size. No significant pulmonary vascular congestion. Minimal bibasilar interstitial opacities are present. The lungs are otherwise clear. No pleural effusion. No pneumothorax. No acute osseous abnormality. IMPRESSION: Minimal right greater than left bibasilar atelectasis and/or pneumonitis. Dictated by: Dictated on workstation # [id number] Dict: 11/07/21 1305 Trans: 11/07/21 1623 [id number] Interpreted by: ROCIO SINCLAIR MD Electronically signed by: ROCIO SINCLAIR MD 11/07/21 162 [facility], [place] NAME: SORAIDA GARCIA [facility] REC#: [id number] PT STATUS: REG ER : 1965 PHYSICIAN: ROBERTO CARLOS DOTY MD ADMIT DATE: 11/07/21/ER Signed Date of Exam:11/07/21 CT HEAD WO-R/O STROKE PROCEDURE: CT head wo r/o stroke. TECHNIQUE: Multiple contiguous axial images were obtained through the brain without the use of intravenous contrast. Auto Exposure Controls were utilized during the CT exam to meet ALARA standards for radiation dose reduction. INDICATION: Difficulty speaking, neurodeficits. COMPARISON: No prior studies are available for comparison. FINDINGS: Ventricles and sulci are within normal limits. No sulcal effacement or midline shift is identified. No acute intra-axial or extra-axial hemorrhage is seen. There is a small low density in the left thalamus consistent with age-indeterminate lacunar infarct. No other abnormalities are seen. Cisterns are patent. Visualized paranasal sinuses are clear. IMPRESSION: 1. No acute intracranial hemorrhage is detected. 2. Age-indeterminate left thalamic lacunar infarct. Dictated by: Dictated on workstation # [id number] Dict: 11/07/21 1310 Trans: 11/07/21 1553 [id number] Interpreted by: MICHAEL HERMOSILLO MD Electronically signed by: MICHAEL HERMOSILLO MD 11/07/21 155 [facility] [place] [place] NAME: SORAIDA GARCIA MED REC#: [id number] PT STATUS: ADM Phil : 1965 PHYSICIAN: ROBERTO CARLOS DOTY MD ADMIT DATE: 11/07/21 Signed Date of Exam:11/07/21 CT ANGIO HEAD/NECK PROCEDURE: CT angiography of the head and CT angiography of the neck with and without contrast. TECHNIQUE: Contiguous noncontrast images were obtained from the skull base through the vertex. After intravenous contrast administration, helical CT angiography of the neck was performed. Source data was reformatted into 3D MIP projections. Delayed post contrast acquisition was also obtained. Auto Exposure Controls were utilized during the CT exam to meet ALARA standards for radiation dose reduction. INDICATION: Expressive aphasia CTA HEAD: Anterior, middle and posterior cerebral arteries are well-opacified without evidence of stenosis or occlusion. There is no aneurysm or vascular malformation. No abnormal contrast enhancement is seen. IMPRESSION: No CTA evidence of great vessel abnormality in the head. CTA NECK: There is a normal three-vessel branching pattern arising from the aortic arch. No stenosis or occlusion is identified. There is reversal of cervical lordosis with mild diffuse cervical spondylosis. No acute fracture is identified. There is no evidence of contrast extravasation or cervical mass. Vertebral arteries are codominant without stenosis or occlusion. Vertebral arteries are mildly tortuous but otherwise unremarkable. IMPRESSION: No CTA evidence of great vessel abnormality in the neck. Dictated by: Dictated on workstation # [id number] Dict: 11/07/21 1420 Trans: 11/07/21 1659 [facility] [id number] Interpreted by: TONY MCADAMS MD Electronically signed by: TONY MCADAMS MD 11/07/21 1659 Assessment/Plan Admission Diagnosis AMS Admission Status: Observation Assessment and Plan AMS COVID19 CT head on admission negative for acute findings Given cough and loss of taste COVID PCR ordered + COVID on 11/08/21, symptom onset 11/03/21 Discussed with patient and family regarding isolation criteria and natural course of illness Patient ok with treatment with MAB or Paxlovid, will discuss with pharmacy and get what's available here as she is not admitted for COVID19 but confusion Mentation improving but will also check UA Diagnosis/Problems Diagnosis/Problems (1) COVID-19 Status: Acute (2) AMS (altered mental status) Qualifiers: Altered mental status type: delirium Qualified Codes: R41.0 - Disorientation, unspecified (3) Headache Status: Acute Qualifiers: Headache type: unspecified Headache chronicity pattern: unspecified pattern Intractability: intractable Qualified Codes: R51.9 - Headache, unspecified Clinical Quality Measures Stroke: Date of last known well: Nov 07, 2021 Symptoms onset unknown: Yes (unclear time of onset) BASIL CRUMP MD Nov 08, 2021 11:15
[2021-11-08 11:39] VITALS: BP 97/62
[2021-11-08] MEDS ORDERED: NS (IVPB) 250 ML ONE (12:46)
[2021-11-08] MEDS: SOTROVIMAB 500 MG/NS 50 ML IVPB IV NR ×4 (13:08→13:40)
[2021-11-08 13:59] LABS: BILIRUBIN,URINE NEGATIVE (NEGATIVE); CLARITY,URINE CLEAR; COLOR,URINE YELLOW; GLUCOSE, URINE (UA) NEGATIVE (NEGATIVE); KETONES,URINE NEGATIVE (NEGATIVE); LEUKOCYTE ESTERASE ,URINE 3+ (NEGATIVE); NITRITE,URINE NEGATIVE (NEGATIVE); PROTEIN,URINE NEGATIVE (NEGATIVE)
[2021-11-08 14:15] LABS: AMPHETAMINE SCREEN, URINE NEGATIVE (NEGATIVE); BARBITURATE SCREEN URINE NEGATIVE (NEGATIVE); BENZODIAZEPINES SCREEN URINE NEGATIVE (NEGATIVE); CANNABINOID SCREEN, URINE NEGATIVE (NEGATIVE); COCAINE SCREEN URINE NEGATIVE (NEGATIVE); METHADONE STAT NEGATIVE (NEGATIVE); METHAMPHETAMINE SCREEN URINE S NEGATIVE (NEGATIVE); OPIATE SCREEN URINE NEGATIVE (NEGATIVE); OXYCODONE STAT NEGATIVE (NEGATIVE); PROPOXYPHENE STAT NEGATIVE (NEGATIVE); TRICYCLIC ANTIDEPRESSANTS SCRE NEGATIVE (NEGATIVE)
[2021-11-08 14:24] LABS: BACTERIA,URINE TRACE /HPF
--- NOTE | 2021-11-08 14:29 | Occupational Therapy Eval ---
OT Evaluation-General/PLF Medical Diagnosis Admission Date Nov 07, 2021 at 15:07 Medical Diagnosis: AMS, COVID-19 Onset Date: Nov 07, 2021 Therapy Diagnosis Therapy Diagnosis: decreased ADL status Height/Weight Height (Feet): 5 Height (Inches): 4.00 Weight (Pounds): 150 Precautions Precautions/Isolations: Fall Prevention, Standard Precautions Referral Physician: Alisia Referral Reason: Evaluation/Treatment Medical History Additional Medical History appendectomy, tonsillectomy, hysterectomy Current History ED due to confusion. Had a dental procedure November 03, has felt unwell since. Pt was confused at work, unable to find words, coworkers brought her to ED for evaluation. While in hospital, pt tested positive for COVID-19 Social History Home: Single Level Current Living Status: Alone Steps Into Home: 2 ADL-Prior Level of Function SCALE: Activities may be completed with or without assistive devices. 3-Ebfpnjjnbe-einztap completes the activity by him/herself with no assistance from a helper. 5-Set-up or Clean-up Assistance-helper sets up or cleans up; patient completes a ctivity. Lizella assists only prior to or following the activity. 4-Supervision or Touching Assistance-helper provides verbal cues and/or touching/steadying and/or contact guard assistance as patient completes activity. Assistance may be provided throughout the activity or intermittently. 3-Partial/Moderate Assistance-helper does LESS THAN HALF the effort. Lizella lifts, holds or supports trunk or limbs, but provides less than half the effort. 2-Substantial/Maximal Assistance-helper does MORE THAN HALF the effort. Lizella lifts or holds trunk or limbs and provides more than half the effort. 4-Iimluotls-ruwqvn does ALL the effort. Patient does none of the effort to complete the activity. Or, the assistance of 2 or more helpers is required for the patient to complete the activity. If activity was not attempted, code reason: 7-Patient Refused. 9-Not Applicable-not attempted and the patient did not perform the activity before the current illness, exacerbation or injury. 10-Not Attempted due to Environmental Limitations-(lack of equipment, weather restraints, etc.). 88-Not Attempted due to Medical Conditions or Safety Concerns. ADL PLOF Comments Pt reports IND with ADLs and functional mobility, no AD. She was working time lock expert. Self Care: Independent Functional Cognition: Independent OT Current Status Subjective Pt up to toilet with nursing staff. Pt agreeable to OT tx. Mental Status/Objective Patient Orientation: Person, Place, Situation Attachments: IV, Telemetry Current Upper Extremity ROM WFL Upper Extremity Strength grossly 3+/5 ADL-Treatment Eating (QC): 6 Oral Hygiene (QC): 5 (per clincial judgment.) Toileting Hygiene (QC): 4 (CGA) Other Treatments Pt on toilet upon OT arrival, pt agreeable to OT evaluation. Pt provided information about PLOF and home set up. Pt completed hygiene seated on toilet, sit to stand from toilet with CGA, CGA for pant hike. Pt stood at sink to wash hands, SBA, then MANAGER CORPORATE to return to EOB. Pt transferred supine independently. Pt's lunch on tray table, pt able to open containers and cut food in order to eat independently. Post tx, pt in bed, call light in reach and all needs met. Education OT Patient Education: Correct positioning, Energy conservation, Modified ADL techniques, Progress toward Goal/Update tx plan, Purpose of tx/functional activities, Rehab process Teaching Recipient: Patient Teaching Methods: Discussion Response to Teaching: Verbalize Understanding OT [employer]. Senator Goals Skilled Nursing Goals Time Frame: Nov 18, 2021 Oral Hygiene (QC): 5 Toileting Hygiene (QC): 6 Lower Body Dressing (QC): 5 On/Off Footwear (QC): 5 Additional Goals: 1-Demonstrate ADL Tasks, 2-Verbalize Understanding, 3- ImproveStrength/Vianney 1=Demonstrate adherence to instructed precautions during ADL tasks. 2=Patient will verbalize/demonstrate understanding of assistive devices/modifications for ADL. 3=Patient will improve strength/tolerance for activity to enable patient to perform ADL's. OT Education/Plan Problem List/Assessment Assessment: Decreased Activ Tolerance, Decreased UE Strength, Impaired Funct Balance, Impaired I ADL's, Impaired Self-Care Skills Pt would benefit from skilled OT services in order to increase safety and independence with ADLs and to increase strength and activity tolerance, to maximize LOF for safe return home. Discharge Recommendations Plan/Recommendations: Continue POC Treatment Plan/Plan of Care Patient would benefit from OT for education, treatment and training to promote independence in ADL's, mobility, safety and/or upper extremity function for AD L's. Plan of Care: ADL Retraining, Functional Mobility, UE Funct Exercise/Act Treatment Duration: Nov 18, 2021 Frequency: 3 times per week (3-5 times per week) Estimated Hrs Per Day: .25 hour per day Rehab Potential: Good Time/GCodes Start Time: 13:32 Stop Time: 13:48 Total Time Billed (hr/min): 16 Billed Treatment Time 1, AMY BRINK OT Nov 08, 2021 14:29
[2021-11-08] MEDS ORDERED: ACHD5005 PO (15:30)
[2021-11-08] MEDS ORDERED: IBUP-1773 PO (15:30)
[2021-11-08] MEDS ORDERED: ONDA4TAB11 PO (15:30)
[2021-11-08] MEDS ORDERED: AMOX500C2 PO (15:30)
[2021-11-08 16:00] VITALS: BP 100/69
[2021-11-08 19:49] VITALS: BP 98/65
[2021-11-09] VITALS (7 sets, daily range): BP systolic 96–102; BP diastolic 61–75
[2021-11-09 05:44] LABS: HEMATOCRIT 42 % (35-52); HEMOGLOBIN 13.4 g/dL (11.5-16.0); MEAN CORPUSCULAR HEMOGLOBIN 28 pg (25-34); MEAN CORPUSCULAR HGB CONC 32 g/dL (32-36); MEAN CORPUSCULAR VOLUME 87 fL (80-99); MEAN PLATELET VOLUME 10.6 fL (9.0-12.2); PLATELET COUNT 239 10^3/uL (130-400); WHITE BLOOD COUNT 5.6 10^3/uL (4.3-11.0)
[2021-11-09 05:51] LABS: POTASSIUM 4.3 MMOL/L (3.6-5.0)
[2021-11-09 05:52] LABS: CALCIUM 8.7 MG/DL (8.5-10.1)
[2021-11-09 05:57] LABS: CREATININE SERUM 0.81 MG/DL (0.60-1.30)
--- NOTE | 2021-11-09 09:41 | Physical Therapy Daily Note ---
PT Daily Note-Current Subjective Patient sitting upright in bed finishing breakfast upon PT arrival. Agreeable to therapy. Mental Status Patient Orientation: Person, Place, Time, Situation Transfers SCALE: Activities may be completed with or without assistive devices. 2-Kowzcqkfoq-iorrkzd completes the activity by him/herself with no assistance from a helper. 5-Set-up or Clean-up Assistance-helper sets up or cleans up; patient completes activity. Hurley assists only prior to or following the activity. 4-Supervision or Touching Assistance-helper provides verbal cues and/or touching/steadying and/or contact guard assistance as patient completes activity. Assistance may be provided throughout the activity or intermittently. 3-Partial/Moderate Assistance-helper does LESS THAN HALF the effort. Hurley lifts, holds or supports trunk or limbs, but provides less than half the effort. 2-Substantial/Maximal Assistance-helper does MORE THAN HALF the effort. Hurley lifts or holds trunk or limbs and provides more than half the effort. 2-Havoznwgs-vezomc does ALL the effort. Patient does none of the effort to complete the activity. Or, the assistance of 2 or more helpers is required for the patient to complete the activity. If activity was not attempted, code reason: 7-Patient Refused. 9-Not Applicable-not attempted and the patient did not perform the activity before the current illness, exacerbation or injury. 10-Not Attempted due to Environmental Limitations-(lack of equipment, weather restraints, etc.). 88-Not Attempted due to Medical Conditions or Safety Concerns. Roll Left & Right (QC): 6 Sit to Lying (QC): 6 Lying to Sitting/Side of Bed(Q: 6 Sit to Stand (QC): 4 Chair/Xvq-dk-Qvlfa Xfer(QC): 4 Gait Training Distance: 200 Walk 10 feet (QC): 4 Walk 50 ft with 2 Turns(QC): 4 Walk 150 ft (QC): 4 Gait Persons Needed: 1 Patient requires CGA at times during gait due to being unsteady and reaching for objects to steady herself. Assessment Current Status: Good Progress Patient tolerated treatment well until the end of gait training. Patient ambulates 200 feet in room, with CGA and verbal cues for posture and safety. Patient tends to grab for the bed and other furniture to stabilize. At ~ 200 feet, patient reports feeling dizziness and requests to sit down. She immediately reports feeling nauseous and stayed upright at the edge of the bed ~ 5 minutes. Patients IV heplock was coming loose due to tape, however this therapist could not find any tape to attempt to secure in the room. Nurse notified on all of the above. Patient in bed post treatment with all needs met, nursing notified, call light in hand. PT Assisted Goals Auto Parts Manager Goals PT Auto Parts Manager Goals Time Frame: Nov 12, 2021 Roll Left & Right (QC): 6 Sit to Lying (QC): 6 Lying-Sitting on Side/Bed(QC): 6 Sit to Stand (QC): 6 Chair/Sme-uc-Xzije Xfer(QC): 6 Toilet Transfer (QC): 6 Walk 10 feet (QC): 6 Walk 50ft with 2 Turns (QC): 6 Walk 150 ft (QC): 6 PT Plan Treatment/Plan Treatment Plan: Continue Plan of Care Treatment Plan: Bed Mobility, Education, Functional Activity Vianney, Functional Strength, Gait, Safety, Therapeutic Exercise, Transfers Treatment Duration: Nov 12, 2021 Frequency: 5 times per week Estimated Hrs Per Day: .25 hour per day Patient and/or Family Agrees t: Yes Safety Risks/Education Patient Education: Gait Training Teaching Recipient: Patient Teaching Methods: Demonstration, Discussion Response to Teaching: Verbalize Understanding, Reinforcement Needed Time/GCodes Time In: 856 Time Out: 1020 Total Billed Treatment Time: 24 Total Billed Treatment 1, KETURAH vasquez JOHN A PT Nov 09, 2021 09:41
--- NOTE | 2021-11-09 13:52 | Occupational Ther Daily Note ---
OT Current Status-Daily Note Subjective Pt in bed, agreeable to OT tx. Pt tearful during session due to missing her cousins today. Mental Status/Objective Patient Orientation: Normal For Age ADL-Treatment Therapy Code Descriptions/Definitions Functional [place] Measure: 0=Not Assessed/NA 4=Minimal Assistance 1=Total Assistance 5=Supervision or Setup 2=Maximal Assistance 6=Modified [place] 3=Moderate Assistance 7=Complete IndependenceSCALE: Activities may be completed with or without assistive devices. 6-Pgdaxmdfoo-jmosagd completes the activity by him/herself with no assistance from a helper. 5-Set-up or Clean-up Assistance-helper sets up or cleans up; patient completes activity. [place] assists only prior to or following the activity. 4-Supervision or Touching Assistance-helper provides verbal cues and/or touc camille/steadying and/or contact guard assistance as patient completes activity. Assistance may be provided throughout the activity or intermittently. 3-Partial/Moderate Assistance-helper does LESS THAN HALF the effort. [place] lifts, holds or supports trunk or limbs, but provides less than half the effort. 2-Substantial/Maximal Assistance-helper does MORE THAN HALF the effort. [place] lifts or holds trunk or limbs and provides more than half the effort. 9-Ocdmgabvs-sxpbmg does ALL the effort. Patient does none of the effort to complete the activity. Or, the assistance of 2 or more helpers is required for the patient to complete the activity. If activity was not attempted, code reason: 7-Patient Refused. 9-Not Applicable-not attempted and the patient did not perform the activity before the current illness, exacerbation or injury. 10-Not Attempted due to Environmental Limitations-(lack of equipment, weather restraints, etc.). 88-Not Attempted due to Medical Conditions or Safety Concerns. Eating (QC): 6 Oral Hygiene (QC): 5 Toileting Hygiene (QC): 6 Other Treatment Pt in bed, agreeable to OT Tx. Pt reports she has no concerns with her ability to complete ADLs at discharge. She is independent with lunch, she already brushed her teeth today, and she just toileted prior to OT arrival. Pt reports no concerns with these tasks, and feels like she is at PLOF with self care tasks. Pt declines dressing at this time, but reports she will not have any difficulty with task. Pt tearful throughout session, states she is supposed to be at her cousins today. OT provided therapeutic listening, and talked with pt about her feelings. Pt thanked this therapist at end of session. Post tx, pt in bed, call light in reach and all needs met. Education OT Patient Education: Correct positioning, Energy conservation, Modified ADL techniques, Progress toward Goal/Update tx plan, Purpose of tx/functional acti vities, Rehab process Teaching Recipient: Patient Teaching Methods: Discussion Response to Teaching: Verbalize Understanding OT Caustic Strength Inspector Goals Caustic Strength Inspector Goals Time Frame: Nov 18, 2021 Oral Hygiene (QC): 5 Toileting Hygiene (QC): 6 Lower Body Dressing (QC): 5 On/Off Footwear (QC): 5 Additional Goals: 1-Demonstrate ADL Tasks, 2-Verbalize Understanding, 3- ImproveStrength/Vianney 1=Demonstrate adherence to instructed precautions during ADL tasks. 2=Patient will verbalize/demonstrate understanding of assistive devices/modifications for ADL. 3=Patient will improve strength/tolerance for activity to enable patient to perform ADL's. OT Education/Plan Problem List/Assessment Assessment: No Skilled OT Needs ID'd No skilled OT services indicated, as pt is at PLOF with self care tasks, and has no concerns with her ability to complete at discharge. d/c from OT Discharge Recommendations Plan/Recommendations: Discharge/Goals Met Treatment Plan/Plan of Care Patient would benefit from OT for education, treatment and training to promote independence in ADL's, mobility, safety and/or upper extremity function for ADL's. Plan of Care: ADL Retraining, Functional Mobility, UE Funct Exercise/Act Treatment Duration: Nov 18, 2021 Frequency: 3 times per week (3-5 times per week) Estimated Hrs Per Day: .25 hour per day Rehab Potential: Good Time/GCodes Start Time: 13:15 Stop Time: 13:30 Total Time Billed (hr/min): 15 Billed Treatment Time 1, ADL AMY DAVID OT Nov 09, 2021 13:52
--- NOTE | 2021-11-09 14:24 | Progress Note - Hospitalist ---
Subjective HPI/CC On Admission Date Seen by Provider: Nov 09, 2021 Time Seen by Provider: 14:04 Patient is a 55-year-old female with no known past medical history who presented to the emergency department due to confusion. She recently had a dental procedure done on , November 03 and has not really felt well since that time. She complains of cough nausea and sweating. She thought it was due to the procedure and that she does not do well with pain medicines. Yesterday at work she was very confused and unable to find words. She also became very upset when talking about a family member who recently . Her coworkers brought her into the emergency room for evaluation. She was activated as code stroke and CT head was negative for acute findings. The ER physician discussed this with [facility] stroke neurology who recommended observation given no focal deficits with negative imaging. This morning. She is mentating much better though still not quite back to normal per her daughter who is at bedside. She now complains of a cough and loss of taste. She is unvaccinated for Covid. She is unsure of any exposures. Subjective/Events-last exam Patient reports feeling much better today. She states her brain fog is significantly improved. She did get up to walk with physical therapy and got a little dizzy. She associates that with having not eaten breakfast yet. Despite this she still feels she is unable to go home where she lives alone. Objective Exam Vital Signs Vital Signs Date Time Temp Pulse Resp B/P (MAP) Pulse Ox O2 Delivery O2 Flow Rate FiO2 11/09/21 12:00 36.6 65 20 100/62 (75) 92 Room Air Capillary Refill : Less Than 3 Seconds General Appearance: No Apparent Distress, WD/WN Respiratory: Lungs Clear, No Respiratory Distress Cardiovascular: Regular Rate, Rhythm, No Murmur Neurologic/Psychiatric: Alert, Oriented x3 Results/Procedures Lab Laboratory Tests 11/09/21 05:33 Patient resulted labs reviewed. Imaging: Reviewed Imaging Report Assessment/Plan Assessment and Plan Assess & Plan/Chief Complaint AMS COVID19 CT head on admission negative for acute findings + COVID on 11/08/21, symptom onset 11/03/21 Discussed with patient and family regarding isolation criteria and natural course of illness Received MAB 11/08/21 Feeling better today but not ready to DC due to LH and living alone Diagnosis/Problems Diagnosis/Problems (1) COVID-19 Status: Acute (2) AMS (altered mental status) Qualifiers: Altered mental status type: delirium Qualified Codes: R41.0 - Disorientation, unspecified (3) Headache Status: Acute Qualifiers: Headache type: unspecified Headache chronicity pattern: unspecified pat tern Intractability: intractable Qualified Codes: R51.9 - Headache, unspecified Clinical Quality Measures Stroke: Date of last known well: Nov 07, 2021 Symptoms onset unknown: Yes (unclear time of onset) BASIL BHANDARI MD Nov 09, 2021 14:24
[2021-11-10 00:39] VITALS: BP 95/62
[2021-11-10 04:07] VITALS: BP 102/68
[2021-11-10 07:52] VITALS: BP 92/60
--- NOTE | 2021-11-10 08:26 | Discharge Inst-Simple/Standard ---
Discharge Inst-Standard Patient Instructions/Follow Up Plan of Care/Instructions/FU: Please continue to take your medications as written. Please follow up with your primary care doctor to follow up this hospital stay. Activity as Tolerated: Yes Discharge Diet: No Restrictions Return to The Hospital For: Chest pain, shortness of breath, weakness, confusion, if you feel you are getting worse. BASIL BHANDARI MD Nov 10, 2021 08:26
--- NOTE | 2021-11-10 09:32 | Physical Therapy Daily Note ---
PT Daily Note-Current Subjective Upon arrival, pt was laying in bed. Pt agrees to PT. Pt reports no pain, but has a cough. Mental Status Patient Orientation: Normal For Age Transfers SCALE: Activities may be completed with or without assistive devices. 3-Xdffdvtkoq-wslijxx completes the activity by him/herself with no assistance from a helper. 5-Set-up or Clean-up Assistance-helper sets up or cleans up; patient completes activity. Acra assists only prior to or following the activity. 4-Supervision or Touching Assistance-helper provides verbal cues and/or touching/steadying and/or contact guard assistance as patient completes activity. Assistance may be provided throughout the activity or intermittently. 3-Partial/Moderate Assistance-helper does LESS THAN HALF the effort. Acra lifts, holds or supports trunk or limbs, but provides less than half the effort. 2-Substantial/Maximal Assistance-helper does MORE THAN HALF the effort. Acra lifts or holds trunk or limbs and provides more than half the effort. 3-Pbuwlrdfl-rkghfk does ALL the effort. Patient does none of the effort to complete the activity. Or, the assistance of 2 or more helpers is required for the patient to complete the activity. If activity was not attempted, code reason: 7-Patient Refused. 9-Not Applicable-not attempted and the patient did not perform the activity before the current illness, exacerbation or injury. 10-Not Attempted due to Environmental Limitations-(lack of equipment, weather restraints, etc.). 88-Not Attempted due to Medical Conditions or Safety Concerns. Sit to Lying (QC): 6 Lying to Sitting/Side of Bed(Q: 6 Sit to Stand (QC): 6 Chair/Lvo-uc-Clufk Xfer(QC): 6 Gait Training Does the Patient Walk?: Yes Distance: 96' Walk 10 feet (QC): 6 Walk 50 ft with 2 Turns(QC): 6 Gait Assistive Device: None Pt ambulates 6x across room. Exercises Seated Therapy Exercises: Ankle pumps (20), Long arc quads (20), Hip flexion (20), Hip abd/add (10) Treatments Pt completes all seated EX as listed above. Pt has no LOB during ambulation. During EXs pt states that she is getting fatigued. Pt returns to bed to start breakfast. Pt has call light in reach and all needs are met. Assessment Current Status: Good Progress Pt tolerated tx session very well. This [employer] INTELLIGENCE CONSULTANT consulted with PT to dismiss patient from services at this time due to up independently in room without difficulty and may be dismissed to home on this date. PT Short Term Goals Short Term Goals Time Frame: Nov 10, 2021 PT General Partner Goals General Partner Goals PT Penitentiary Goals Time Frame: Nov 12, 2021 Roll Left & Right (QC): 6 Sit to Lying (QC): 6 Lying-Sitting on Side/Bed(QC): 6 Sit to Stand (QC): 6 Chair/Mfw-ak-Aggjg Xfer(QC): 6 Toilet Transfer (QC): 6 Walk 10 feet (QC): 6 Walk 50ft with 2 Turns (QC): 6 Walk 150 ft (QC): 6 PT Plan Problem List Problem List: Activity Tolerance Treatment/Plan Treatment Plan: Discontinue PT Treatment Plan: Bed Mobility, Education, Functional Activity Vianney, Functional Strength, Gait, Safety, Therapeutic Exercise, Transfers Treatment Duration: Nov 12, 2021 Frequency: 5 times per week Estimated Hrs Per Day: .25 hour per day Patient and/or Family Agrees t: Yes Time/GCodes Time In: 830 Time Out: 850 Total Billed Treatment Time: 20 Total Billed Treatment 1, FA 20 LUISA MACIAS [employer] BUSINESS INTELLIGENCE CONSULTANT Nov 10, 2021 09:32
--- NOTE | 2021-11-10 10:00 | Discharge Summary ---
Diagnosis/Chief Complaint Date of Admission Nov 07, 2021 at 15:07 Date of Discharge Discharge Date: Nov 10, 2021 Admission Diagnosis AMS Primary Care No,Local Physician Discharge Diagnosis (1) COVID-19 Status: Acute (2) AMS (altered mental status) (3) Headache Status: Acute Discharge Summary Discharge Physical Exam Allergies: Coded Allergies: acetaminophen (Verified Allergy, Unknown, 11/07/21) codeine (Verified Allergy, Unknown, 11/07/21) diazepam (Verified Allergy, Unknown, 11/07/21) oxycodone (Verified Allergy, Unknown, 11/07/21) propoxyphene (Verified Allergy, Unknown, 11/07/21) Vitals & I&Os Vital Signs Date Time Temp Pulse Resp B/P (MAP) Pulse Ox O2 Delivery O2 Flow Rate FiO2 11/10/21 07:52 36.9 57 18 92/60 (71) 95 Room Air General Appearance: No Apparent Distress, WD/WN Respiratory: Lungs Clear, No Respiratory Distress Cardiovascular: Regular Rate, Rhythm, No Murmur Neurologic/Psychiatric: Alert, Oriented x3 Hospital Course Patient was admitted to to the hospital secondary to altered mental status and was subsequently found to have COVID-19. This was after an extensive neurological work-up including CT head and CTA which were negative for acute findings. Her case was discussed with [facility] stroke neurology and no further s troke work-up was recommended. After COVID-19 diagnosis she was moved to isolation. She was never hypoxic and was treated with monoclonal antibodies while in the hospital. She did well and mentation improved to baseline. She was able to be discharged home with return precautions for fever, shortness of breath or hypoxia. She is to follow-up with her primary care doctor in the next week to follow-up this hospital stay. Labs (last 24 hrs) Microbiology 11/08/21 Urine Culture - Final, Complete Gram Pos Mixed Bacterial Kymberly Patient resulted labs reviewed. Imaging: Reviewed Imaging Report Discussion & Recommendations Discharge Planning: >30 minutes discharge planning Discharge Home Medications: Active Scripts Active Reported Hydrocodone-Acetamin 5-325 mg (Hydrocodone/Acetaminophen) 1 Each Tablet 1 Ea PO Q4H PRN Ondansetron Odt (Ondansetron) 4 Mg Tab.rapdis 4 Mg PO Q8H PRN Amoxicillin 500 Mg Capsule 500 Mg PO Q6H FILLED 11-02-2021 #16/4 DAY SUPPLY Ibuprofen 600 Mg Tablet 600 Mg PO Q6H PRN Instructions to patient/family Please see electronic discharge instructions given to patient. Clinical Quality Measures Stroke: Date of last known well: Nov 07, 2021 Symptoms onset unknown: Yes (unclear time of onset) Problem Qualifiers (1) AMS (altered mental status): Altered mental status type: delirium Qualified Codes: R41.0 - Disorientation, unspecified (2) Headache: Headache type: unspecified Headache chronicity pattern: unspecified pattern Intractability: intractable Qualified Codes: R51.9 - Headache, unspecified BASIL BHANDARI MD Nov 10, 2021 10:00
[2021-11-10 11:50] VITALS: BP 100/71
[2021-11-10 12:45] VITALS: BP 100/71
== END 2021-11-10 12:45 | disposition home or self-care (01) ==
LOC: EDUNIT# 12:20 → ER 12:21 → 4TH 15:07
PROVIDERS: ADMIT Family Medicine; ATTEND Family Medicine
DX: U07.1 COVID-19 (principal); R41.82 Altered mental status, unspecified; R51.9 Headache, unspecified; Z87.891 Personal history of nicotine dependence
CPT/HCPCS: 36415; 70450; 70496; 70498; 71045; 80048; 80053; 80061; 80306; 80320; 80329; 81000; 82947; 84484; 85025; 85027; 85379; 85610; 85730; 87088; 87636; 93005; 93041; 96374; 96375; 96376; G0378